=== PATIENT | male | born 1950 | race Caucasian/White ===

== ENCOUNTER 2017-05-09 07:14 | Emergency (ER) | payer OTHER ==
[2017-05-09 07:32] VITALS: BP 106/59
[2017-05-09] MEDS ORDERED: Ketorolac INJ* 30 MG/ML 1 ML VIAL IM ONE (08:21)
--- NOTE | 2017-05-09 08:47 | UC ---
Abdominal Pain Male HPI - HPI Summary HPI Summary: Patient present with a past medical history of kidney stone. He states that Tuesday he developed back pain and attributed it to walking, Tuesday the back pain resolved, and he then developed abdominal pain, he motions to the above the umbilicus, and reports associated nausea. He states the pain has been constant, and is rated 8-9/10 at rest, and the pain worsens with movement. He denies fever, chills, nausea, vomiting, or flank pain. He states this pain feel exactly like the pain he had with his previous kidney stone. - History of Current Complaint Chief Complaint: UCAbdominalPain Stated Complaint: LOWER BACK PAIN Time Seen by Provider: 05/09/17 07:49 Hx Obtained From: Patient Onset/Duration: Sudden Onset, Lasting Days Timing: Constant Severity Initially: Severe Severity Currently: Severe Pain Scale Used: 0-10 Numeric - 8-9/10 Location: Diffuse - across abdomen above the umbilicus Radiates: No Character: Sharp Aggravating Factor(s): Movement Alleviating Factor(s): Nothing Associated Signs And Symptoms: Positive: Nausea Similar Episode/Dx As:: kidney stone - Risk Factors Testicular Torsion: Negative Cardiac Risk Factors: Negative - Allergies/Home Medications Allergies/Adverse Reactions: Allergies Allergy/AdvReac Type Severity Reaction Status Date / Time No Known Allergies Allergy Verified 05/09/17 07:23 Home Medications: Home Medications Amlodipine Besylate [Norvasc 5 mg tab] 5 mg PO DAILY 05/09/17 [History Confirmed 05/09/17] PMH/Surg Hx/FS Hx/Imm Hx Previously Healthy: Yes Cardiovascular History: Hypertension GI/ History: Kidney Stones - Surgical History Surgical History: None - Family History Known Family History: Positive: Cardiac Disease, Other - lung cancer - Social History Occupation: Employed Part-time Lives: With Family Alcohol Use: Occasionally Substance Use Type: None Smoking Status (MU): Former Smoker Review of Systems Constitutional: Negative Skin: Negative Eyes: Negative ENT: Negative Respiratory: Negative Cardiovascular: Negative Gastrointestinal: Abdominal Pain, Nausea Genitourinary: Negative Motor: Negative Neurovascular: Negative Musculoskeletal: Negative Neurological: Negative Psychological: Negative All Other Systems Reviewed And Are Negative: Yes Physical Exam Triage Information Reviewed: Yes Appearance: Pain Distress Vital Signs: Initial Vital Signs Temp 100.4 F 05/09/17 07:25 Pulse 80 05/09/17 07:25 Resp 20 05/09/17 07:25 BP 106/59 05/09/17 07:25 Pulse Ox 97 05/09/17 07:25 Vital Signs Reviewed: Yes Eye Exam: Normal ENT Exam: Normal Dental Exam: Normal Neck exam: Normal Neck: Positive: 1 Respiratory Exam: Normal Cardiovascular Exam: Normal Abdomen Description: Positive: Other: - tenderness on palpation across the abdomen above the umbilicius. no rebound, guarding or HSM/CVAT. Musculoskeletal Exam: Normal Neurological Exam: Normal Psychological Exam: Normal Skin Exam: Normal Abd Pain Male Course/Dx - Course Course Of Treatment: Patient presents with complaints of abdominal pain, UA was positie for hematuria. CT abd/pelvis was obtained and read by the radiologist as diverticulitis, with perforation. Patient requested [facility], EMTALA addressed and patient is aware of the possible additional expenses for the transfer. He was given rocephin 1 gm ivp, and tordol prior to trasnfer. Report called to Dr. Domingo, and Pipe. Stable at transfer. Pain was addressed with IM tordol with good relief. - Differential Dx/Clinical Impression Differential Diagnosis/HQI/PQRI: Diverticulitis, Other - perforation Provider Diagnoses: diverticultis. bowel perforation. Discharge - Discharge Plan Condition: Stable Disposition: TRANS HIGHER L OF CARE FAC Patient Education Materials: Abdominal Pain (ED) Referrals: Yany Quintana MD [Primary Care Provider] - Additional Instructions: Transfer to [facility] ER via [facility].
--- NOTE | 2017-05-09 09:13 | RAD ---
Indication: Dysuria. Back pain. CT of the abdomen and pelvis was performed without oral or IV contrast administration. Coronal and sagittal reconstructed images were obtained. The lung bases demonstrate no pleural fluid, nodules or masses. Heart is of normal size without evidence of pericardial effusion. The liver is normal in size. No focal lesions or intrahepatic ductal dilatation is noted. The gallbladder demonstrates no calcified gallstones. No pericholecystic fluid or wall thickening is noted. The spleen is normal in size. Left adrenal there is a lobulated spleen with a portion of the spleen abutting the left adrenal gland. No adrenal masses are noted. No hydronephrosis of either kidney is noted. No retroperitoneal lymphadenopathy is noted. Atherosclerotic aorta is noted. CT of the pelvis demonstrates diverticulitis with small to moderate amount of extraluminal gas. This is consistent with a localized perforation. Reticulation of fat is noted. No peridiverticular abscess is noted. No hernias are noted. The prostate is enlarged. The urinary bladder demonstrates diffuse wall thickening. IMPRESSION: THERE IS WALL THICKENING OF THE SIGMOID COLON JUST ABOVE THE URINARY BLADDER. THERE IS A MODERATE AMOUNT OF EXTRALUMINAL AIR. THIS IS CONSISTENT WITH A LOCALIZED PERFORATION. THIS IS CONSISTENT WITH DIVERTICULITIS. NO EVIDENCE OF PERIDIVERTICULAR ABSCESS IS NOTED CURRENTLY OF THE RETICULATION OF FAT IS NOTED.
[2017-05-09] MEDS ORDERED: NS 0.9% 1000 ML* 1,000 ML IV SCH (09:45)
[2017-05-09] MEDS ORDERED: cefTRIAXone VIAL(*) 1,000 MG in NS 0.9% 50 ML* 50 ML IVPB ONE (09:49)
[2017-05-09] MEDS ORDERED: cefTRIAXone VIAL(*) 1,000 MG VIAL ONE (09:53)
== END 2017-05-09 10:20 | disposition short-term general hospital (02) ==
LOC: UCEAST 07:14
DX: K57.80 Diverticulitis of intestine, part unspecified, with perforation and abscess without bleeding (principal); I10 Essential (primary) hypertension; Z87.442 Personal history of urinary calculi; Z87.891 Personal history of nicotine dependence
CPT/HCPCS: 74176; 81003; 96360; 96372; 99213; G0463; J0696; J1885